=== PATIENT | female | born 1970 | race Hispanic/Latino ===

== ENCOUNTER 2018-03-29 11:30 | Emergency (ER) | payer BC, OTHER ==
[2018-03-29] MEDS ORDERED: HYDROCODONE/APAP 5/325 MG TAB ONE (12:32)
--- NOTE | 2018-03-29 12:51 | RAD REPORT ---
EXAM DESCRIPTION: RAD - Knee Left 3 View - 03/29/2018 12:39 pm CLINICAL HISTORY: Fall, knee pain COMPARISON: None. FINDINGS: Subtle lucency along the superior margin of the patella is probably a normal variant. If t he patient has pain in this location, CT imaging of the knee may be of value. Elsewhere, no findings to suspect fracture, dislocation or joint effusion.
--- NOTE | 2018-03-29 12:56 | EDPHYS ---
Physician Documentation [facility] Name: Ginny Salas Age: 47 yrs Sex: Female : 1970 Arrival Date: 03/29/2018 Time: 11:37 Bed 12 Private MD: ED Physician Wally Marquez HPI: 03/29 12:35 This 47 yrs old Female presents to ER via Wheelchair with complaints of Knee snw Pain. 12:35 Onset: The symptoms/episode began/occurred suddenly, yesterday, and became persistent. snw The patient has not experienced similar symptoms in the past. It is unknown whether or not the patient has recently seen a physician. using 's crutches as she is unable to bear much weight to left knee without significant pain. [employer]ER: 11:44 LMP 03/15/2018 ph Historical: - Allergies: 11:44 No Known Allergies; ph - PMHx: 11:44 Irregular heart rate; ph - PSHx: 11:44 Tubal ligation; ; R ankle sx; cardiac ablasion; ph - Immunization history:: Adult Immunizations unknown. - Social history:: Smoking status: Patient uses tobacco products, smokes one-half pack cigarettes per day. - Ebola Screening: : No symptoms or risks identified at this time. ROS: 12:35 Constitutional: Negative for fever, chills, and weight loss, Eyes: Negative for injury, snw pain, redness, and discharge, ENT: Negative for injury, pain, and discharge, Neck: Negative for injury, pain, and swelling, Cardiovascular: Negative for chest pain, palpitations, and edema, Respiratory: Negative for shortness of breath, cough, wheezing, and pleuritic chest pain, Abdomen/GI: Negative for abdominal pain, nausea, vomiting, diarrhea, and constipation, Back: Negative for injury and pain, : Negative for injury, bleeding, discharge, and swelling, Skin: Negative for injury, rash, and discoloration, Neuro: Negative for headache, weakness, numbness, tingling, and seizure. 12:35 MS/extremity: Positive for injury or acute deformity, contusion, pain, of the medial aspect of left knee. Exam: 12:34 Constitutional: This is a well developed, well nourished patient who is awake, alert, snw and in no acute distress. Head/Face: Normocephalic, atraumatic. Eyes: Pupils equal round and reactive to light, extra-ocular motions intact. Lids and lashes normal. Conjunctiva and sclera are non-icteric and not injected. Cornea within normal limits. Periorbital areas with no swelling, redness, or edema. ENT: Nares patent. No nasal discharge, no septal abnormalities noted. Tympanic membranes are normal and external auditory canals are clear. Oropharynx with no redness, swelling, or masses, exudates, or evidence of obstruction, uvula midline. Mucous membranes moist. Neck: Trachea midline, no thyromegaly or masses palpated, and no cervical lymphadenopathy. Supple, full range of motion without nuchal rigidity, or vertebral point tenderness. No Meningismus. Chest/axilla: Normal chest wall appearance and motion. Nontender with no deformity. No lesions are appreciated. Cardiovascular: Regular rate and rhythm with a normal S1 and S2. No gallops, murmurs, or rubs. Normal PMI, no JVD. No pulse deficits. Respiratory: Lungs have equal breath sounds bilaterally, clear to auscultation and percussion. No rales, rhonchi or wheezes noted. No increased work of breathing, no retractions or nasal flaring. Abdomen/GI: Soft, non-tender, with normal bowel sounds. No distension or tympany. No guarding or rebound. No evidence of tenderness throughout. Back: No spinal tenderness. No costovertebral tenderness. Full range of motion. Skin: Warm, dry with normal turgor. Normal color with no rashes, no lesions, and no evidence of cellulitis. Neuro: Awake and alert, GCS 15, oriented to person, place, time, and situation. Cranial nerves II-XII grossly intact. Motor strength 5/5 in all extremities. Sensory grossly intact. Cerebellar exam normal. Normal gait. Psych: Awake, alert, with orientation to person, place and time. Behavior, mood, and affect are within normal limits. 12:34 Musculoskeletal/extremity: Extremities: grossly normal except: noted in the medial aspect of left knee: swelling, tenderness, Circulation is intact in all extremities. Sensation intact. Compartment Syndrome exam of affected extremity: is normal. Vital Signs: 11:44 BP 118 / 61; Pulse 92; Resp 18; Temp 97.8; Pulse Ox 96% on R/A; Weight 86.18 kg; Height ph 5 ft. 2 in. (157.48 cm); Pain 7/10; 11:44 Body Mass Index 34.75 (86.18 kg, 157.48 cm) ph MDM: 12:06 Patient medically screened. snw 12:56 Data reviewed: vital signs, nurses notes. Data interpreted: Pulse oximetry: on room air snw is 96 %. Interpretation: acceptable. Counseling: I had a detailed discussion with the patient and/or guardian regarding: the historical points, exam findings, and any diagnostic results supporting the discharge/admit diagnosis, radiology results, the need for outpatient follow up, to return to the emergency department if symptoms worsen or persist or if there are any questions or concerns that arise at home. Special discussion: Based on the history and exam findings, there is no indication for further emergent testing or inpatient evaluation. I discussed with the patient/guardian the need to see the orthopedic surgeon for further evaluation of the symptoms. 03/29 12:20 Order name: Knee Left 3 View XRAY; Complete Time: 12:54 snw Administered Medications: 12:34 Drug: [place] 5 mg-325 mg 1 tabs Route: PO; iw 13:00 Follow up: Response: No adverse reaction iw Disposition: 18:41 Co-signature as Attending Physician, Wally Marquez MD I agree with the assessment and kdr plan of care. Disposition: 03/29/18 12:55 Discharged to Home. Impression: Pain in left knee. - Condition is Stable. - Discharge Instructions: Crutch Use, Knee Bracing, Musculoskeletal Pain, Knee Pain, Cryotherapy, [id number], Heat Therapy. - Prescriptions for Diclofenac Sodium 75 mg Oral Tablet Sustained Release - take 1 tablet by ORAL route 2 times per day; 30 tablet. - Medication Reconciliation Form, Thank You Letter, Antibiotic Education, Prescription Opioid Use form. - Follow up: Private Physician; When: 2 - 3 days; Reason: Recheck today's complaints, Continuance of care, Re-evaluation by your physician. Follow up: Emergency Department; When: As needed; Reason: Worsening of condition. Signatures: Dispatcher [employer] Wally Leblanc MD MD kdr Therrien, Shelly, NETWORK TECHNICAL ANALYST-C NETWORK TECHNICAL ANALYST-Csnw Celina Loco RN RN iw Palencia, Rosaline, RN RN ph Corrections: (The following items were deleted from the chart) 13:32 12:55 03/29/2018 12:55 Discharged to Home. Impression: Pain in left knee. Condition is iw Stable. Forms are Medication Reconciliation Form, Thank You Letter, Antibiotic Education, Prescription Opioid Use. Follow up: Private Physician; When: 2 - 3 days; Reason: Recheck today's complaints, Continuance of care, Re-evaluation by your physician. Follow up: Emergency Department; When: As needed; Reason: Worsening of condition. snw
--- NOTE | 2018-03-29 12:56 | ER ---
Nurse's Notes [facility] Name: Ginny Salas Age: 47 yrs Sex: Female : 1970 Arrival Date: 03/29/2018 Time: 11:37 Bed 12 Private MD: Diagnosis: Pain in left knee Presentation: 03/29 11:42 Presenting complaint: Patient states: " I hurt my knee last night, but I was drinking ph so I don't remember exactly how I did it." Pt reports pain to L knee and L ankle, small abrasion noted to L foot. Transition of care: patient was not received from another setting of care. Onset of symptoms was March 29, 2018. Risk Assessment: Do you want to hurt yourself or someone else? Patient reports no desire to harm self or others. Initial Sepsis Screen: Does the patient meet any 2 criteria? No. Patient's initial sepsis screen is negative. Does the patient have a suspected source of infection? No. Patient's initial sepsis screen is negative. Care prior to arrival: None. 11:42 Method Of Arrival: Wheelchair ph 11:42 Acuity: FRANK 4 ph TRY ON BASTER: 11:44 LMP 03/15/2018 ph Historical: - Allergies: 11:44 No Known Allergies; ph - PMHx: 11:44 Irregular heart rate; ph - PSHx: 11:44 Tubal ligation; ; R ankle sx; cardiac ablasion; ph - Immunization history:: Adult Immunizations unknown. - Social history:: Smoking status: Patient uses tobacco products, smokes one-half pack cigarettes per day. - Ebola Screening: : No symptoms or risks identified at this time. Screenin:36 Abuse screen: Denies threats or abuse. Denies injuries from another. Nutritional iw screening: No deficits noted. Tuberculosis screening: No symptoms or risk factors identified. Fall Risk Fall in past 12 months (25 points). Assessment: 12:35 General: Appears in no apparent distress. Behavior is calm, cooperative. Pain: iw Complains of pain in medial aspect of left knee. Neuro: Level of Consciousness is awake, alert, obeys commands, Oriented to person, place, time, situation. Cardiovascular: Patient's skin is warm and dry. Respiratory: Respiratory effort is even, unlabored. Derm: Skin is pink, warm \\T\\ dry. normal. Musculoskeletal: Range of motion: limited in left knee. Vital Signs: 11:44 BP 118 / 61; Pulse 92; Resp 18; Temp 97.8; Pulse Ox 96% on R/A; Weight 86.18 kg; Height ph 5 ft. 2 in. (157.48 cm); Pain 7/10; 11:44 Body Mass Index 34.75 (86.18 kg, 157.48 cm) ph ED Course: 11:37 Patient arrived in ED. rg4 11:42 [facility]C [facility] snw 11:42 Wally Marquez MD is Attending Physician. snw 11:43 Triage completed. ph 11:45 Arm band placed on. ph 11:54 Celina Loco, RN is Primary Nurse. iw 12:35 Patient has correct armband on for positive identification. iw 12:39 Knee Left 3 View XRAY In Process Unspecified. EDMS 13:30 No provider procedures requiring assistance completed. Patient did not have IV access iw during this emergency room visit. Administered Medications: 12:34 Drug: [place] 5 mg-325 mg 1 tabs Route: PO; iw 13:00 Follow up: Response: No adverse reaction iw Outcome: 12:55 Discharge ordered by MD. snw 13:30 Discharged to home via wheelchair, with family. iw 13:30 Condition: good 13:30 Discharge instructions given to patient, family, Instructed on discharge instructions, follow up and referral plans. medication usage, Demonstrated understanding of instructions, follow-up care, medications, Prescriptions given X 2. 13:32 Patient left the ED. iw Signatures: Dispatcher [employer] EDMS Susan Kat FNP-C SUPERVISOR [employer]-Csnw Celina Loco, ROSEMARY RN Rosaline Palencia RN RN Shannon Lennon rg4
== END 2018-03-29 13:32 | disposition home or self-care (01) ==
LOC: ER 11:30
DX: M25.562 Pain in left knee (principal); F17.210 Nicotine dependence, cigarettes, uncomplicated
CPT/HCPCS: 99283

== ENCOUNTER 2018-12-31 10:16 | Emergency (ER) | payer BC ==
--- OUTSIDE RECORDS SUMMARY | 2018-12-31 10:20 | XMS REPORT ---
:1970 Author Organization [employer] Care Team Providers Name Role Phone Felipe Patel Provider Role Unavailable Allergies, Adverse Reactions, Alerts Substance Reaction Event Type N.K.D.A. Info Not Available Non Drug Allergy Problems Problem Type Condition Code Onset Dates Condition Status Assessment Sprain of medial collateral S83.412D Active ligament of left knee, subsequent encounter Assessment Acute pain of left knee M25.562 Active Medications No Known Medications Results No Known Results Summary Purpose [employer] Submission
--- OUTSIDE RECORDS SUMMARY | 2018-12-31 10:20 | XMS REPORT ---
:1970 Author Organization [employer] Care Team Providers Name Role Phone Felipe Patel Provider Role Unavailable Allergies No Known Allergies Problems No Known Problems Medications No Known Medications Results No Known Results Summary Purpose [employer] Submission
[2018-12-31] MEDS ORDERED: ONDANSETRON 4 MG/2 ML VIAL ONE ×2 (11:03→15:12)
[2018-12-31] MEDS ORDERED: NA CHLORIDE 0.9% 1,000 ML ONE (11:03)
[2018-12-31] MEDS ORDERED: MORPHINE 4 MG/ML SYR ONE ×2 (11:03→15:12)
[2018-12-31] MEDS ORDERED: CEFTRIAXONE/SWI 1gm 1 GM/10 ML SYR ONE (11:03)
[2018-12-31 11:06] LABS: Absolute Lymphocytes (CBC) 1.5 K/uL (0.7-4.9); Absolute Monocytes 0.6 K/uL (0.1-1.3); Absolute Neutrophil 6.8 K/uL (1.8-8.0); Basophils % 1.3 % (0-1.3); Eosinophils % 2.6 % (0-4.4); Hematocrit 24.5 % (36.0-45.0); Lymphocytes % 16.5 % (15.3-44.8); MPV 8.5 fL (7.6-11.3); Monocytes % 6.3 % (3.3-12.3); RBC Red Blood Cell Count 4.33 M/uL (3.86-4.86)
[2018-12-31 11:32] LABS: Urine Blood 1+ (NEG); Urine Glucose NEGATIVE (NEG); Urine Protein 1+ (NEG); Urine pH 6.5 (5.0-7.0)
[2018-12-31 11:34] LABS: ALT/SGPT 13 U/L (12-78); AST/SGOT 13 U/L (15-37); Albumin 3.4 g/dL (3.4-5.0); Alkaline Phosphatase 108 U/L (45-117); BUN Blood Urea Nitrogen 8 mg/dL (7-18); Bicarbonate 25 mmol/L (21-32); Bilirubin Direct 0.2 mg/dL (0-0.2); Bilirubin Total 0.8 mg/dL (0.2-1.0); Glucose Level 94 mg/dL (74-106); Lipase 54 U/L (73-393); Potassium 3.3 mmol/L (3.5-5.1); Protein, Total 7.6 g/dL (6.4-8.2); Sodium Level 139 mmol/L (136-145)
--- NOTE | 2018-12-31 11:54 | RAD REPORT ---
EXAM DESCRIPTION: CTAbdomen Pelvis W Contrast - 12/31/2018 11:45 am CLINICAL HISTORY: Abdominal pain. ABD PAIN COMPARISON: No comparisons TECHNIQUE: Biphasic CT imaging of the abdomen and pelvis was performed with 100 ml non-ionic IV cont rast. All CT scans are performed using dose optimization technique as appropriate and may include automated exposure control or mA/KV adjustment according to patient size. FINDINGS: The lung bases are clear. The liver, spleen, pancreas, adrenal glands and kidneys are within normal limits. No bowel obstruction, free air, free fluid or abscess. A short segment of the sigmoid colon in the le ft lower quadrant demonstrates moderate inflammatory changes surrounding several diverticula, compati ble with acute diverticulitis. There is no peridiverticular abscess. The appendix is normal. No evid ence of significant lymphadenopathy. No suspicious bony findings. IMPRESSION: Short-segment acute left lower quadrant diverticulitis without abscess.
[2018-12-31 12:05] LABS: Anisocytosis 1+; Blood Morphology Comment NOTED (NOT SEEN); Hypochromasia 3+; Ovalocytes 1+; Platelet Estimate ADEQ; Polychromasia 1+; Urine White Blood Cell Casts OK
--- NOTE | 2018-12-31 14:20 | ER ---
Nurse's Notes [facility] Name: Ginny Salas Age: 48 yrs Sex: Female : 1970 Arrival Date: 12/31/2018 Time: 10:21 Bed 20 Private MD: Flakito Manriquez T Diagnosis: Diverticulitis of large intestine without perforation or abscess with bleeding;Melena Presentation: 12/31 10:27 Presenting complaint: LLQ pain x 3 days. Transition of care: patient was not received hb from another setting of care. Onset of symptoms was December 28, 2018. Risk Assessment: Do you want to hurt yourself or someone else? Patient reports no desire to harm self or others. Initial Sepsis Screen: Does the patient meet any 2 criteria? No. Patient's initial sepsis screen is negative. Does the patient have a suspected source of infection? No. Patient's initial sepsis screen is negative. Care prior to arrival: None. 10:27 Method Of Arrival: Ambulatory hb 10:27 Acuity: FRANK 3 hb SHAKER FLATWORK: 15:36 LMP N/A - . tw2 Historical: - Allergies: 10:28 No Known Allergies; hb - Home Meds: 10:28 None [Active]; hb - PMHx: 10:27 Irregular heart rate; tw2 - PSHx: 10:27 Tubal ligation; ; R ankle sx; cardiac ablation; tw2 - Immunization history:: Adult Immunizations. - Social history:: Smoking status: . - Ebola Screening: : Patient denies travel to an Ebola-affected area in the 21 days before illness onset. - Family history:: not pertinent. Screenin:26 Abuse screen: Denies threats or abuse. Nutritional screening: No deficits noted. tw2 Tuberculosis screening: No symptoms or risk factors identified. Fall Risk None identified. Assessment: 10:30 Pain: Complains of pain in left lower quadrant. tw2 10:30 General: Appears in no apparent distress. well groomed, Behavior is calm, cooperative, tw2 appropriate for age. 10:30 Neuro: Level of Consciousness is awake, alert, obeys commands, Oriented to person, tw2 place, time, situation. Cardiovascular: Denies chest pain, shortness of breath, Heart tones S1 S2 Patient's skin is warm and dry. Respiratory: Airway is patent Respiratory effort is even, unlabored, Respiratory pattern is regular, symmetrical, Breath sounds are clear bilaterally. GI: Abdomen is round non-distended, Bowel sounds present X 4 quads. Abd is soft X 4 quads. GI: Reports lower abdominal pain, upper abdominal pain. : No signs and/or symptoms were reported regarding the genitourinary system. EENT: No signs and/or symptoms were reported regarding the EENT system. Derm: No signs and/or symptoms reported regarding the dermatologic system. Musculoskeletal: Range of motion: intact in all extremities. 15:06 Reassessment: Patient appears in no apparent distress at this time. Patient and/or tw2 family updated on plan of care and expected duration. Pain level reassessed. Patient is alert, oriented x 3, equal unlabored respirations, skin warm/dry/pink. medicated as ordered. Patient states symptoms have not improved. 16:00 Reassessment: Patient appears in no apparent distress at this time. Patient and/or tw2 family updated on plan of care and expected duration. Pain level reassessed. Patient is alert, oriented x 3, equal unlabored respirations, skin warm/dry/pink. 16:42 Reassessment: Patient appears in no apparent distress at this time. Patient and/or tw2 family updated on plan of care and expected duration. Pain level reassessed. Patient is alert, oriented x 3, equal unlabored respirations, skin warm/dry/pink. Vital Signs: 10:27 BP 114 / 43; Pulse 90; Resp 16; Temp 97.4; Pulse Ox 100% on R/A; Weight 97.52 kg; hb Height 5 ft. 2 in. (157.48 cm); Pain 8/10; 11:30 BP 107 / 47; Pulse 80; Resp 17; Pulse Ox 97% on R/A; tw2 13:13 BP 111 / 56; Pulse 79; Resp 17; Pulse Ox 99% on R/A; tw2 14:10 BP 97 / 58; Pulse 78; Resp 17; Pulse Ox 99% on R/A; tw2 15:05 BP 110 / 62; Pulse 79; Resp 17; Pulse Ox 99% on R/A; Pain 7/10; tw2 16:43 BP 100 / 48; Pulse 75; Resp 17; Pulse Ox 97% on R/A; tw2 10:27 Body Mass Index 39.32 (97.52 kg, 157.48 cm) hb ED Course: 10:21 Patient arrived in ED. as 10:22 Flakito Manriquez MD is Private Physician. as 10:24 Adriana Hines MD is Attending Physician. ma2 10:25 Starr Figueredo RN is Primary Nurse. tw2 10:26 Arm band placed on. tw2 10:26 Bed in low position. Call light in reach. Pulse ox on. NIBP on. tw2 10:27 Triage completed. hb 10:50 Inserted saline lock: 22 gauge in right antecubital area, using aseptic technique. mw2 Blood collected. 11:26 Notified ED physician of a critical lab result(s). hgb 7.1 per Sonia in lab. tw2 11:45 CT Abd/Pelvis - W/Contrast: no po contrast In Process Unspecified. EDMS 11:45 CT completed. Patient tolerated procedure well. Patient moved to CT via wheelchair. sj Patient moved back from CT. 15:48 No provider procedures requiring assistance completed. tw2 16:42 Patient transferred, IV remains in place. tw2 Administered Medications: 10:56 Drug: Zofran 4 mg Route: IVP; Site: right antecubital; tw2 14:07 Follow up: Response: No adverse reaction tw2 10:58 Drug: morphine 4 mg Route: IVP; Site: right antecubital; tw2 14:07 Follow up: Response: No adverse reaction tw2 10:59 Drug: NS 0.9% 1000 ml Route: IV; Rate: 1 bolus; Site: right antecubital; tw2 16:48 Follow up: Response: No adverse reaction; IV Status: Completed infusion; IV Intake: tw2 1000ml 11:06 Drug: Rocephin 1 grams Route: IV; Rate: calculated rate; Site: right antecubital; tw2 11:12 Follow up: Response: No adverse reaction; IV Status: Completed infusion tw2 15:03 Drug: Zofran 4 mg Route: IVP; Site: right antecubital; tw2 16:41 Follow up: Response: No adverse reaction; Pain is decreased tw2 16:41 Follow up: Response: No adverse reaction tw2 15:05 Drug: morphine 4 mg Route: IVP; Site: right antecubital; tw2 16:47 Follow up: Response: No adverse reaction; Pain is decreased tw2 Intake: 16:48 IV: 1000ml; Total: 1000ml. tw2 Outcome: 14:19 ER care complete, transfer ordered by . ma2 15:46 Transferred by ground EMS to [facility], Note: report given to tw2 Urszula Mckeon RN 15:46 Instructed on the need for transfer. 16:42 Condition: stable tw2 16:47 Patient left the ED. tw2 Signatures: Dispatcher [employer] Cecilia Tong Amelia as Baxter, Heather, RN RN Starr Figueredo RN RN tw2 Adriana Hines MD MD ok2 Moriah Atkins 2 Corrections: (The following items were deleted from the chart) 15:07 15:05 Pulse 79bpm; Resp 17bpm; Pulse Ox 99% RA; Pain 7/10; tw2 tw2 15:36 10:30 General: Appears in no apparent distress. well groomed, Behavior is calm, tw2 cooperative, appropriate for age, tw2
--- NOTE | 2018-12-31 14:20 | EDPHYS ---
Physician Documentation [facility] Name: Ginny Salas Age: 48 yrs Sex: Female : 1970 Arrival Date: 12/31/2018 Time: 10:21 Bed 20 Private MD: Flakito Manriquez T ED Physician Adriana Hines HPI: 12/31 10:55 This 48 yrs old Female presents to ER via Ambulatory with complaints of ma2 Abdominal Pain. 10:55 The patient presents with abdominal pain. Onset: The symptoms/episode began/occurred ma2 gradually, 1 day(s) ago. The symptoms do not radiate. Associated signs and symptoms: Pertinent negatives: anorexia, chest pain, dysuria. The symptoms are described as achy. Severity of pain: At its worst the pain was moderate in the emergency department the pain is unchanged. The patient has not experienced similar symptoms in the past. 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 tw2 Historical: - Allergies: 10:28 No Known Allergies; hb - Home Meds: 10:28 None [Active]; hb - PMHx: 10:27 Irregular heart rate; tw2 - PSHx: 10:27 Tubal ligation; ; R ankle sx; cardiac ablation; tw2 - Immunization history:: Adult Immunizations. - Social history:: Smoking status: . - Ebola Screening: : Patient denies travel to an Ebola-affected area in the 21 days before illness onset. - Family history:: not pertinent. ROS: 10:55 Constitutional: Negative for fever, chills, and weight loss, Cardiovascular: Negative ma2 for chest pain, palpitations, and edema, Respiratory: Negative for shortness of breath, cough, wheezing, and pleuritic chest pain, Back: Negative for injury and pain, : Negative for injury, bleeding, discharge, and swelling, MS/Extremity: Negative for injury and deformity, Skin: Negative for injury, rash, and discoloration. 10:55 Abdomen/GI: Positive for abdominal pain, Negative for nausea and vomiting, nausea, abdominal cramps, rectal pain, bowel incontinence. Exam: 10:55 Constitutional: This is a well developed, well nourished patient who is awake, alert, ma2 and in no acute distress. Chest/axilla: Normal chest wall appearance and motion. Nontender with no deformity. No lesions are appreciated. Cardiovascular: Regular rate and rhythm with a normal S1 and S2. No gallops, murmurs, or rubs. Normal PMI, no JVD. No pulse deficits. Respiratory: Lungs have equal breath sounds bilaterally, clear to auscultation and percussion. No rales, rhonchi or wheezes noted. No increased work of breathing, no retractions or nasal flaring. 10:55 MS/ Extremity: Pulses equal, no cyanosis. Neurovascular intact. Full, normal range of motion. Neuro: Awake and alert, GCS 15, oriented to person, place, time, and situation. Cranial nerves II-XII grossly intact. Motor strength 5/5 in all extremities. Sensory grossly intact. Cerebellar exam normal. Normal gait. 10:55 Abdomen/GI: Inspection: abdomen appears normal, Bowel sounds: normal, Palpation: moderate abdominal tenderness, in the left lower quadrant, Hernia: not appreciated. Vital Signs: 10:27 BP 114 / 43; Pulse 90; Resp 16; Temp 97.4; Pulse Ox 100% on R/A; Weight 97.52 kg; hb Height 5 ft. 2 in. (157.48 cm); Pain 8/10; 11:30 BP 107 / 47; Pulse 80; Resp 17; Pulse Ox 97% on R/A; tw2 13:13 BP 111 / 56; Pulse 79; Resp 17; Pulse Ox 99% on R/A; tw2 14:10 BP 97 / 58; Pulse 78; Resp 17; Pulse Ox 99% on R/A; tw2 15:05 BP 110 / 62; Pulse 79; Resp 17; Pulse Ox 99% on R/A; Pain 7/10; tw2 16:43 BP 100 / 48; Pulse 75; Resp 17; Pulse Ox 97% on R/A; tw2 10:27 Body Mass Index 39.32 (97.52 kg, 157.48 cm) hb MDM: 10:24 Patient medically screened. ma2 10:55 Differential diagnosis: gastritis, gastroesophageal reflux disease, non-specific abd ma2 pain, pancreatitis. Data reviewed: vital signs, nurses notes, lab test result(s). Counseling: I had a detailed discussion with the patient and/or guardian regarding: the historical points, exam findings, and any diagnostic results supporting the discharge/admit diagnosis, the presence of at least one elevated blood pressure reading (>120/80) during this emergency department visit. Counseling: I had a detailed discussion with the patient and/or guardian regarding: radiology results. Response to treatment:. 14:13 ED course: patient has melena in the presence of hb of 7.[address] ma2 her symptoms improved, vs stable, she does not have active bleeding.. bleeding likely d/t diverticulitis.. need observation and HB recheck however, no gi . 14:18 ED course: . ED course: needs gi consult, not available in our hospital will transfer ma2 for higher level of care . 12/31 10:37 Order name: Basic Metabolic Panel; Complete Time: 11:39 ma2 12/31 10:37 Order name: CBC with Diff; Complete Time: 12:43 ma2 12/31 10:37 Order name: Creatinine for Radiology; Complete Time: 11:39 ma2 12/31 10:37 Order name: Hepatic Function; Complete Time: 11:39 ma2 12/31 10:37 Order name: Lipase; Complete Time: 11:39 ma2 12/31 10:37 Order name: Test, Serum; Complete Time: 11:28 ma2 12/31 10:37 Order name: CT Abd/Pelvis - W/Contrast: no po contrast; Complete Time: 12:43 ma2 12/31 11:12 Order name: Urine Dipstick--Ancillary (enter results); Complete Time: 11:39 bd 12/31 11:12 Order name: Urine --Ancillary (enter results); Complete Time: 11:39 bd 12/31 11:26 Order name: CBC Smear Scan; Complete Time: 12:43 EDMS 12/31 11:28 Order name: Occult Blood nc2 12/31 11:39 Order name: Type And Screen; Complete Time: 12:53 ma2 12/31 13:16 Order name: ABO/RH no charge; Complete Time: 13:31 EDMS 12/31 10:37 Order name: IV Saline Lock; Complete Time: 10:56 ma2 12/31 10:37 Order name: Labs collected and sent; Complete Time: 10:56 ma2 12/31 10:37 Order name: Urine Dipstick-Ancillary (obtain specimen); Complete Time: 11:06 ma2 Administered Medications: 10:56 Drug: Zofran 4 mg Route: IVP; Site: right antecubital; tw2 14:07 Follow up: Response: No adverse reaction tw2 10:58 Drug: morphine 4 mg Route: IVP; Site: right antecubital; tw2 14:07 Follow up: Response: No adverse reaction tw2 10:59 Drug: NS 0.9% 1000 ml Route: IV; Rate: 1 bolus; Site: right antecubital; tw2 16:48 Follow up: Response: No adverse reaction; IV Status: Completed infusion; IV Intake: tw2 1000ml 11:06 Drug: Rocephin 1 grams Route: IV; Rate: calculated rate; Site: right antecubital; tw2 11:12 Follow up: Response: No adverse reaction; IV Status: Completed infusion tw2 15:03 Drug: Zofran 4 mg Route: IVP; Site: right antecubital; tw2 16:41 Follow up: Response: No adverse reaction; Pain is decreased tw2 16:41 Follow up: Response: No adverse reaction tw2 15:05 Drug: morphine 4 mg Route: IVP; Site: right antecubital; tw2 16:47 Follow up: Response: No adverse reaction; Pain is decreased tw2 Disposition: 12/31/18 14:19 Transfer ordered to [facility]. Diagnosis are Diverticulitis of large intestine without perforation or abscess with bleeding, Melena. - Reason for transfer: Higher level of care. - Accepting physician is dr. sultana. - Condition is Stable. - Problem is new. - Symptoms are unchanged. 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 Diagnosis is tw2 Diverticulitis of large intestine without perforation or abscess with bleeding; Melena. Reason for transfer: Higher level of care. Accepting physician is dr. sultana. Condition is Stable. Problem is new. Symptoms are unchanged. ma2
== END 2018-12-31 16:47 | disposition short-term general hospital (02) ==
LOC: ER 10:16
DX: K57.33 Diverticulitis of large intestine without perforation or abscess with bleeding (principal); K92.1 Melena
CPT/HCPCS: 36415; 74177; 80048; 80076; 81003; 81025; 83690; 84703; 85025; 86850; 86900; 86901; 96361; 96374; 96375; 99285; J0696; J2405; J7030; Q9967